=== PATIENT | female | born 1950 | race Caucasian/White ===

== ENCOUNTER 2023-07-08 09:45 | Emergency (ER) | payer MEDICARE ==
[~2023-07-08] VITALS: Ht 167.6 cm; Wt 72.3 kg
[2023-07-08 09:48] VITALS: TEMP 97.5
--- NOTE | 2023-07-08 11:07 | NUR ---
PT REPORTS TO THE ER FOR TRIPPING OVER HOSE THIS MORNING AND FALLING. PT DENIES HEADSTRIKE, PT DENIES BLOOD THINNERS. PT REPORTS RIGHT 5TH DIGIT PAIN. PAIN LEVEL 2/10 PAIN IN RIGHT 5TH DIGIT.
[2023-07-08 11:58] VITALS: BP 174/77; PULSE 63; RESP 18; O2SAT 99
--- NOTE | 2023-07-08 12:36 | NUR ---
I AGREE WITH THE ASSESSMENT DONE BY Joe PATEL LVN.
== END 2023-07-08 12:37 | disposition home or self-care (01) ==
LOC: ER 09:46
DX: M25.531 Pain in right wrist (principal); M85.841 Other specified disorders of bone density and structure, right hand; W19.XXXA Unspecified fall, initial encounter; Y93.89 Activity, other specified; Y92.89 Other specified places as the place of occurrence of the external cause; Y99.8 Other external cause status
CPT/HCPCS: 29125; 73110; 73140; 99284

== ENCOUNTER 2023-07-19 12:39 | Emergency (ER) | payer MEDICARE ==
[~2023-07-19] VITALS: Ht 167.6 cm; Wt 86.0 kg
[2023-07-19 12:46] VITALS: PULSE 63; RESP 18; O2SAT 98
[2023-07-19] MEDS ORDERED: NAPR-56 PO (15:26)
[2023-07-19 15:41] VITALS: TEMP 98
[2023-07-19 15:49] VITALS: BP 170/56
--- NOTE | 2023-07-19 16:39 | NUR ---
ELECTRONIC INTELLIGENCE OFFICER ASSESSMENT REVIEWED, BY LATOYA RN; APPROVED
== END 2023-07-19 15:41 | disposition home or self-care (01) ==
LOC: ER 12:41
DX: S62.616G Displaced fracture of proximal phalanx of right little finger, subsequent encounter for fracture with delayed healing (principal); X58.XXXD Exposure to other specified factors, subsequent encounter
CPT/HCPCS: 29130; 73130; 99284; A6449

== ENCOUNTER 2025-01-22 09:51 | Emergency (ER) | payer MEDICARE ==
[~2025-01-22] VITALS: Ht 167.6 cm; Wt 81.8 kg
--- NOTE | 2025-01-22 11:08 | RADIOLOGY REPORT ---
CLINICAL INDICATION: KNEE PAIN TECHNIQUE: 4 radiographic views of the left knee were obtained. Comparison: None FINDINGS/IMPRESSION: There is no evidence of acute fracture or dislocation. The visualized joint space is well maintained. The alignment is anatomical. There is no radiopaque foreign body.
--- NOTE | 2025-01-22 12:52 | Physician Documentation ---
History of Present Illness ~ Chief Complaint: Mechanical Fall Stated Complaint: FALL/L KNEE PAIN/HEAD STRIKE/NO LOC/NO BLOOD THINN Time Seen by MD: 12:49 OK to notify your PCP?: Yes Primary Medical Doctor: COURTNEY WHITEHEAD IN Source: patient, RN/, RN notes reviewed, old records Mode of Arrival: POV, Dropped Off Exam Limitations: no limitations HPI 75 year old female presents to the emergency department for complaints of a mechanical fall that happened 01/21/2025 at 1300. She states that she had fallen and twisted her left knee as well as hitting her head. She denies any pain in her head. She states that she is unable to ambulate and her leg wallace when she tries to walk on it. She states that she had taken tramadol for her pain. She denies any blood thinners. She states that three years ago she was seen by Dr. Gamble and told that she had a torn meniscus in her left leg but did not receive surgery on it. Patient denies any other associated symptoms at this time. Patient denies any other alleviating or exacerbating factors. Tetanus within 5 Years?: No (Unsure) Medication Reconciliation Allergies: Coded Allergies: No Known Drug Allergies (Unverified Allergy, Unknown, 07/08/23) Scheduled PRN Hydrocodone Bit/Acetaminophen 5/325 MG (Leeds 5/325 MG), 1 TAB PO Q12H PRN PRN for pain Past Medical History Past Medical History: No Pertinent History Past Surgical History: cholecystectomy Review of Systems All Other Systems at this time: Reviewed and Negative ROS As stated above in the HPI, otherwise all systems are reviewed and negative. Physical Exam Vital Signs: RN Vital Signs have been reviewed: Yes, Temperature: 98.1, Source: Oral, Heart Rate: 62, Respiratory Rate: 18, BP: 132/57, Pulse Oximetry: 96, Weight: 81.820 Oxygen Flow Rate: 0 Pulse Oximetry Reflects: adequate oxygenation Physical Exam General: The patient is well developed, well nourished, nontoxic appearing and is in no acute distress. Skin: Shields, warm and dry with no rashes. HEENT: Head was normocephalic and atraumatic. Eyes - pupils equal, round, reactive to light and accommodation. Extraocular movements were intact. Conjunctivae were nonicteric. Ears - bilateral tympanic membranes were normal. The mouth and oropharynx were clear with moist mucous membranes. There were no pharyngeal exudates or erythema. Neck: Supple and nontender. There was no jugular venous distention, lymphadenopathy, thyromegaly or masses. Chest: Clear to auscultation bilaterally without wheezes, rales or rhonchi. No accessory muscle use. No dullness to percussion. Heart: Systolic 2/6 heart murmur. Rate regular and rhythmic. S1, S2. Palpation of the chest wall was normal. No rubs or thrills. Abdomen: Soft, nontender and nondistended. Positive bowel sounds. No guarding or rebound. No hepatosplenomegaly or palpable masses. Extremities: Left knee effusion with decreased range of motion and laxity of joints. No cyanosis, clubbing or edema. The patient moves all extremities. Pulses were equal and symmetric. Neurologic: Cranial nerves II-XII were intact. Sensation was intact to light touch throughout. Motor strength was 5/5 in all four extremities. Deep tendon reflexes were intact in both upper and lower extremities. Psychologic: The patient was oriented to person, place and time. The patient demonstrated appropriate judgement and insight. Procedures Splinting Pre-Made Type: knee immobilizer Pre-Proc Neuro Vasc Exam: normal Post-Proc Neuro Vasc Exam: normal Splint Placed By: Nurse Tolerated Procedure Well?: yes, no complications Procedure Note Patient was also given crutches upon discharge. Additional Procedures Additional Procedures: Other Procedure Note An attempt was made to remove blood from the knee joint. The left knee was made sterile with iodine and dressings were applied. 5cc of both Bupivicanie and Lidocaine were administered. An 18 gauge needle was used to attempt to withdrawl fluid. Multiple attmepts were made but the site did not produce any excess fluid. Progress Results/Orders Reviewed/noted all lab results: Yes Results/Orders Orders - TRAVIS MEDINA MD Knee, Complete (01/22/25 10:02) Ct Lower Extremity (01/22/25 12:57) Completed Orders - TRAVIS MEDINA MD Knee, Complete (01/22/25 10:02) Ct Lower Extremity (01/22/25 12:57) Hydrocodone/Apap 10/325 (Leeds 10/325mg (01/22/25 13:00) Bupivacaine 2.5mg/Ml /Pf (Sensorcaine 0. (01/22/25 13:00) Lidocaine 1% 30ml Vial (Xylocaine 1% Via (01/22/25 13:00) Vital Signs 01/22/25 01/22/25 01/22/25 01/22/25 10:01 10:24 10:32 11:02 Temp 98.1 98.1 Pulse 66 61 64 Resp 18 16 16 18 B/P (MAP) 158/82 140/70 (93) 132/72 (92) Pulse Ox 99 99 96 O2 Flow Rate 0 0 0 01/22/25 01/22/25 01/22/25 01/22/25 11:43 13:19 13:23 14:35 Temp 98.1 98.1 Pulse 62 71 65 Resp 18 16 16 16 B/P (MAP) 132/57 (82) 146/75 (98) 142/71 (94) Pulse Ox 96 99 99 O2 Flow Rate 0 0 0 01/22/25 15:51 Temp 98.1 Pulse 75 Resp 18 B/P (MAP) 140/70 Pulse Ox 99 Re-Evaluation Re-Evaluation : Re-Evaluation: Improved Progress Patient was seen and examined. Patient was given reassurance. Patient had significant pain to the left knee non ambulating with a large effusion. X-ray did not show any fracture. However CAT scan was ordered because of high suspicion and patient is unable to tolerate any pain with ambulation and weight- bearing activity. I attempted to do an arthrocentesis but he was unable to remove any blood but I did not inject the area with lidocaine for pain management. Patient received Leeds 10 mg. Later Joon bandage and knee immobiliz er was applied with crutches however she was not that is steady with crutches has been purchased a wheelchair. Patient was then discharged home to follow up with Orthopedic surgery. EKG/XRAY/CT/US/VASC/MRI EKG : Intepreting Monitor?: Yes Bone/Soft Tissue X-Ray (Ext.) : Additional Comment CLINICAL INDICATION: KNEE PAIN TECHNIQUE: 4 radiographic views of the left knee were obtained. Comparison: None FINDINGS/IMPRESSION: There is no evidence of acute fracture or dislocation. The visualized joint space is well maintained. The alignment is anatomical. There is no radiopaque foreign body. Electronically Signed by:YESSI DIAMOND MD Date & Time: 01/22/[address] : Impression CLINICAL INDICATION: 75 years old, Female; left knee trauma effusion. TECHNIQUE: Noncontrast CT of the left knee was performed. Sagittal and coronal reformatted images are provided. COMPARISON: Radiographs of the left knee dated 01/22/2025 CT Dose: CTDI volume is 16.8 mGy. Dose-length product is 524.9 mGy*cm FINDINGS: There is an acute comminuted lateral tibial plateau fracture. There is no depression of the articular surface. There are tricompartment osteophytes. No evidence of dislocation. Moderate lipohemarthrosis. Regional soft tissue swell ing. There is a Ng's cyst. IMPRESSION: 1. Acute comminuted lateral tibial plateau fracture without depression of the articular surface. 2. Lipohemarthrosis and regional soft tissue swelling. All CT scans at this medical facility are performed using dose modulation techniques as appropriate to a performed exam including the following: Automated exposure control was utilized; adjustment of the MA and/or KV according to patient size; and use of iterative reconstruction technique. Electronically Signed by:JESSI BUENROSTRO MD Date & Time: 01/22/25 1328 Medical Decision Making Additional info obtained from: old records Differential Dx:Considerations: Include: Closed head injury, Cardiac injury, Fracture(s), Intraabdominal injury, Pneumothorax, Cerebral contusion, Pulmonary contusion, Spine injury, Tracheal injury, Urological injury, Vascular injury, Abrasion(s), Contusion(s), Foreign body(s), Hematoma(s), Laceration(s), Encephalopathy, Other Departure Time of Disposition: 15:20 Disposition: 01 HOME / SELF CARE / HOMELESS Impression: Primary Impression: Hemarthrosis involving knee joint Qualified Codes: M25.062 - Hemarthrosis, left knee Additional Impression: Tibial plateau fracture Qualified Codes: S82.142A - Displaced bicondylar fracture of left tibia, initial encounter for closed fracture Condition: Stable Discharge Instructions: Fall Prevention in the Home, Adult, [id number] Referrals: NO PRIMARY CARE PROVIDER (PCP) Mavis,Chinedu M, DO Prescriptions Hydrocodone Bit/Acetaminophen 5/325 MG (Leeds 5/325 MG) 5 Mg/325 Mg Tablet 1 TAB PO Q12H PRN PRN for pain for 10 Days, #20 TAB Prov: TRAVIS MEDINA MD 01/22/25 Education Educated: Patient, Family Educated regarding: diagnosis, treatment, need for follow up Signature Scribe Signature: Scribed for Travis Medina MD by Leidy Patel . 01/22/25 13:04 Attestation: The note accurately reflects work and decisions made by me.Travis Medina MD 01/22/25 12:52 TRAVIS MEDINA MD Jan 22, 2025 12:52 LEIDY VIDAL Jan 22, 2025 13:05
[2025-01-22] MEDS: HYDROcodone/acetaminophen 10/325mg tab PO ONE (13:19)
--- NOTE | 2025-01-22 13:30 | RADIOLOGY REPORT ---
CLINICAL INDICATION: 75 years old, Female; left knee trauma effusion. TECHNIQUE: Noncontrast CT of the left knee was performed. Sagittal and coronal reformatted images are provided. COMPARISON: Radiographs of the left knee dated 01/22/2025 CT Dose: CTDI volume is 16.8 mGy. Dose-length product is 524.9 mGy*cm FINDINGS: There is an acute comminuted lateral tibial plateau fracture. There is no depression of the articular surface. There are tricompartment osteophytes. No evidence of dislocation. Moderate lipohemarthrosi s. Regional soft tissue swelling. There is a Ng's cyst. IMPRESSION: 1. Acute comminuted lateral tibial plateau fracture without depression of the articular surface. 2. Lipohemarthrosis and regional soft tissue swelling. All CT scans at this medical facility are performed using dose modulation techniques as appropriate t o a performed exam including the following: Automated exposure control was utilized; adjustment of th e MA and/or KV according to patient size; and use of iterative reconstruction technique.
[2025-01-22] MEDS: LIDOcaine 1% 30ml preserv. free vial IJ ONE (13:51)
[2025-01-22] MEDS: BUPIVAcaine/PF 2.5 mg/ml (0.25%) 30ml vial IJ ONE (13:51)
[2025-01-22] MEDS ORDERED: HYDR-3965 PO (15:28)
[2025-01-22 15:51] VITALS: BP 140/70; PULSE 75; RESP 18; TEMP 98.1; O2SAT 99
== END 2025-01-22 15:53 | disposition home or self-care (01) ==
LOC: ER 09:52
DX: M25.062 Hemarthrosis, left knee (principal); S82.142A Displaced bicondylar fracture of left tibia, initial encounter for closed fracture; X50.1XXA Overexertion from prolonged static or awkward postures, initial encounter; Y93.89 Activity, other specified; Y92.89 Other specified places as the place of occurrence of the external cause; Y99.8 Other external cause status
CPT/HCPCS: 20610; 73564; 73700; 99285; A6402; Z7610; A6449